=== PATIENT | male | born 1960 | race Caucasian/White ===

== ENCOUNTER 2017-12-15 08:50 | Day surgery (SDC) | payer OTHER ==
[~2017-12-15] VITALS: Ht 177.8 cm; Wt 113.8 kg
[~2017-12-15 08:50] MED LIST: COZAAR100 MG PO; DAPSONE100 MG PO; FEXOFENADINE H180 MG PO; NORVASC2.5 MG PO; PREVACID30 MG; SIMVASTATIN40 MG PO; XANAX0.5 MG PO
--- NOTE | 2017-12-15 10:26 | NUR ---
12/15/17 1026 Gracy Myers 1007 PT ARRIVED IN PACU SLEEPY WITH NO C/O'S. ICE TO ABD. 1022 C/O ABD PAIN 03/06. FENTANYL 25MCG GIVEN IVP.
--- NOTE | 2017-12-15 12:25 | NUR ---
APPLESAUCE AND ICED WATER GIVEN. CALL LIGHT W/IN REACH. ATTEMPT MADE TO CONTACT SIGNIFICANT OTHER AND SHE IS REPORTED TO HAVE "LEFT" THE FACILITY BY OUR TOOL DESIGNER.
[2017-12-15] MEDS ORDERED: NORCO 5-325 TA1 EACH PO (13:10)
--- NOTE | 2017-12-15 13:29 | NUR ---
PT REPORTS HE DOESN'T HAVE A WHOLE LOT OF PAIN RIGHT NOW, RATING IT A 7/10, BUT HAS NO NEED FOR PAIN MEDS AT THIS TIME. PT IS TOLERATING WATER AND APPLE SAUCE WITHOUT ISSUE. CALL LIGHT IS WITHIN REACH. PT WOULD LIKE TO TRY AND GET UP TO USE RESTROOM.
--- NOTE | 2017-12-15 13:40 | OR ---
[facility] [address] [place], [place] [address] Signed DATE OF OPERATION: 12/15/2017 SURGEON: Joe Carranza MD PREOPERATIVE DIAGNOSIS: Umbilical versus infraumbilical trocar site incisional hernia. POSTOPERATIVE DIAGNOSES: 1. Incarcerated umbilical hernia (12 mm). 2. Incarcerated infraumbilical trocar site incisional hernia (5 mm). PROCEDURE: Umbilical and incisional herniorrhaphy with intraabdominal Ventralex mesh (8 cm). ESTIMATED BLOOD LOSS: None. FINDINGS: Zuri had a previous laparoscopic surgery most likely an appendectomy. He had an infraumbilical 5 mm trocar site incisional hernia incarcerated with omentum. He also had omentum adherent to his umbilical hernia. We were able to close this small incisional hernia primarily and placed our intraabdominal mesh and closed the fascia over the mesh with our Prolene. INDICATIONS: Zuri is a 57-year-old gentleman, who has had previous abdominal surgeries. It looks like he has had a laparoscopic appendectomy, but he is not sure since it had several surgeries. Nevertheless, he certainly had a hernia at the umbilicus. It was difficult to know if we could completely reduce that. I explained to him that it could be a trocar site incisional hernia or both. I gave him our booklet in the office on hernias and we looked at that together along with the difference between a primary suture repair and a mesh repair. He understands expected intraop and postop course. He does understand the risks including, but not limited to bleeding, infection, scarring, change in contour of the skin, damage to bowel, infection of mesh requiring removal, recurrent hernias, and chronic pain. He expressed understanding and wished to proceed. PROCEDURE NOTE: I met with Zuri in the preop area and we marked his incision appropriately. After this, he was taken into the operating room and placed in a supine position under general endotracheal tube anesthesia. He was given preoperative antibiotics along with Electronically Signed By: JOE CARRANZA MD 12/15/17 1340 PATIENT NAME: ZURI DAVIS OPERATIVE REPORT DATE OF : 56 REPORT #: [id number] PHYSICIAN: JOE CARRANZA MD PCP: LA NENA LANE MD REPORT IS CONFIDENTIAL AND NOT TO BE RELEASED WITHOUT AUTHORIZATION [facility] [address] [place] [id number] Signed subcutaneous heparin. SCDs were utilized. He was then prepped and draped in the usual sterile fashion. We utilized a standard infraumbilical transverse incision and carried that down and around the umbilicus bluntly and with the cautery. We encountered his small 5 mm trocar site incisional hernia incarcerated with omentum. We divided that and then we divided the umbilical hernia sac from the fascial defect with the cautery as well. We had to reduce the omentum and then it took extra time to divide the omentum from the surrounding edge of the umbilical fascial defect with the help of the cautery. We had to change sides of the table several times until we got it completely free and we felt all hemostasis was excellent on the omentum. After this, we decided to use our 8 cm round Ventralex mesh and we placed it inside the abdomen flat and brought it up flush against the posterior abdominal wall. We closed the 5 mm trocar site with an interrupted #1 [id number] Prolene suture. We then closed the umbilical fascial defect transversely with a running #1 Prolene suture. Several passes of the suture went through the tab on the mesh to help hold it in place. The tab was then cut flush with the fascia and discarded. Local anesthetic was injected into the abdominal wall as well as subcutaneous tissues. The wound was irrigated and suctioned out until clear. We used 2-0 PDS suture to bring the umbilical skin down to the midline fascia. The skin and dermis were then reapproximated with interrupted 3-0 subcuticular Monocryl sutures. Dry gauze and tape were then applied. Zuri was then awakened from his anesthesia, extubated in the OR, and taken to recovery room in stable condition. Unfortunately, he had a moderate amount of coughing as he came out anesthesia. Abdominal pressure was held and hopefully, he did not pull on the sutures. Joe Carranza MD ALB/MODL /[id number] cc: MD La Nena Guillermo MD Copies: JOE CARRANZA MD Electronically Signed By: JOE CARRANZA MD 12/15/17 1340 PATIENT NAME: ZURI DAVIS OPERATIVE REPORT DATE OF : 56 REPORT #: [id number] PHYSICIAN: JOE CARRANZA MD PCP: LA NENA LANE MD REPORT IS CONFIDENTIAL AND NOT TO BE RELEASED WITHOUT AUTHORIZATION [facility] [address] [place], [place] [address] MD ~ Electronically Signed By: JOE CARRANZA MD 12/15/17 1340 PATIENT NAME: ZURI DAVIS OPERATIVE REPORT DATE OF : 56 REPORT #: [id number] PHYSICIAN: JOE CARRANZA MD PCP: LA NENA L[address] MD REPORT IS CONFIDENTIAL AND NOT TO BE RELEASED WITHOUT AUTHORIZATION
== END 2017-12-15 13:45 | disposition home or self-care (01) ==
LOC: DS 08:50
PROVIDERS: Colon & Rectal Surgery
PROC: 0WUF0JZ Supplement Abdominal Wall with Synthetic Substitute, Open Approach (ICD-10-PCS; 2017-12-15)
PROC: 0WUF0JZ Supplement Abdominal Wall with Synthetic Substitute, Open Approach (ICD-10-PCS; principal; 2017-12-15 09:30)
DX: K43.0 Incisional hernia with obstruction, without gangrene (principal); K42.0 Umbilical hernia with obstruction, without gangrene; I10 Essential (primary) hypertension; E78.00 Pure hypercholesterolemia, unspecified; K90.0 Celiac disease; K21.0 Gastro-esophageal reflux disease with esophagitis; K64.9 Unspecified hemorrhoids; M19.90 Unspecified osteoarthritis, unspecified site; Z98.890 Other specified postprocedural states; Z79.899 Other long term (current) drug therapy
CPT/HCPCS: 00750; C1781; J0690; J1644; J1885; J2250; J2405; J2704; J2710; J2765; J3010; J7120